=== PATIENT | male | born 1960 | race Caucasian/White ===

== ENCOUNTER 2022-09-22 18:00 | Emergency (ER) | payer BC ==
[2022-09-22 18:15] VITALS: BP 190/103; PULSE 63
[2022-09-22] MEDS: Sodium Chloride 0.9% 10 ML Syringe FLUSH PRN (18:21)
[2022-09-22] MEDS: HYDROmorphone 0.5 MG/0.5 ML Syringe IVPUSH ONE (18:22)
[2022-09-22] MEDS: Ondansetron 4 MG/2 ML SDV IVPUSH ONE (18:25)
[2022-09-22] MEDS: Take Home: Acetaminophen/HYDROcodone 325-5 MG, 5 Tab Pack PO ONE (19:20)
== END 2022-09-22 19:05 | disposition home or self-care (01) ==
LOC: DL.ED 18:00
DX: S86.811A Strain of other muscle(s) and tendon(s) at lower leg level, right leg, initial encounter (principal); Z79.82 Long term (current) use of aspirin; W18.39XA Other fall on same level, initial encounter
CPT/HCPCS: 73562; 96374; 96375; 99282; 99283; A9270; J1170; J2405; J3490